=== PATIENT | female | born 1975 | race Hispanic/Latino ===

== ENCOUNTER → 2020-11-24 | Outpatient (CLI) | payer OTHER, MEDICARE | END | disposition home or self-care (01) | LOC: RAH 12:42 | PROVIDERS: ATTEND Physician Assistant Medical | DX: R92.2 Inconclusive mammogram (principal); N60.02 Solitary cyst of left breast; N63.22 Unspecified lump in the left breast, upper inner quadrant | CPT/HCPCS: 76641; 77065 ==